=== PATIENT | female | born 1985 | race Caucasian/White ===

== ENCOUNTER 2017-02-27 15:57 | Emergency (ER) | payer OTHER ==
[~2017-02-27] VITALS: Ht 154.9 cm; Wt 188.2 kg
--- NOTE | ~2017-02-27 | CR63 ---
[facility] A Service of [facility] / [facility] RADIOLOGY TEXT RESULTS PATIENT: YEVGENIY RAMIREZ LOCATION: [facility] : 89 UNIT #: [id number] AGE: [address]: Marina Woodward SEX: F ORDER DR: [id number] [facility]. [place], [place] [address] [id number] MR#: [id number] #: [id number] NAME: YEVGENIY RAMIREZ : 1985 SEX: F STUDY DATE/TIME: 02/27/2017 16:54 UNIT: [facility] ROOM: STUDY DESCRIPTION: CR Chest 2 View Attending Physician: Marina Woodward P.A.-C. Ordering Physician: Marina Woodward P.A.-C. MEDICAL IMAGING REPORT This report is preliminary unless electronic signature is present EXAM Two views of the chest COMPARISON February 07, 2010. INDICATION 32-year-old female with cough, chest congestion and fever for 6 days. Upper respiratory infection. History of asthma and cigarette smoking. FINDINGS The exam is limited by patient body habitus. No evidence of pneumothorax. Prominent breast shadows are seen on the frontal view. There is no convincing evidence of acute airspace disease. No pleural effusion. There may be new cardiomegaly as compared to February 07, 2010. No convincing evidence of pulmonary edema. IMPRESSION Apparent new cardiomegaly. No evidence of pulmonary edema or pleural effusion. No evidence of pneumonia. Please note the exam is limited by patient body habitus. Dictated by... Tayo Stein M.D. THIS IS AN ELECTRONICALLY VERIFIED REPORT Tayo Stein M.D. at 03/03/2017 11:02 PM GIANNA/shereen TD: 02/28/2017 07:57 JOB #: [id number] [facility] A Service of [facility] / [facility] RADIOLOGY TEXT RESULTS PATIENT: YEVGENIY RAMIREZ LOCATION: [facility] : 89 UNIT #: [id number] AGE: [address]: Marina Woodward SEX: F ORDER DR: MEDICAL IMAGING REPORT Page 1 of 1 COPY
== END 2017-02-27 17:49 | disposition home or self-care (01) ==
LOC: CFTX 15:57 → CED 15:57 → CFTX 16:40
DX: J01.90 Acute sinusitis, unspecified (principal); J06.9 Acute upper respiratory infection, unspecified; F17.200 Nicotine dependence, unspecified, uncomplicated; Z88.1 Allergy status to other antibiotic agents; Z91.040 Latex allergy status
CPT/HCPCS: 71020; 94640; 99284